=== PATIENT | female | born 1970 | race Hispanic/Latino ===

== ENCOUNTER 2016-12-18 08:04 | Emergency (ER) | payer MEDICARE, MEDICAID ==
[~2016-12-18] VITALS: Ht 144.8 cm; Wt 71.0 kg
[~2016-12-18 08:04] MED LIST: AMLODIPINE BESY10 MG; AMLODIPINE10 MG PO; AMLODIPINE5 MG PO; ASPIRIN PO; ASPIRIN81 MG PO; ATIVAN0.5 MG PO; CIPROFLOXACIN250 MG OR; DAILY MULT1 OR; DIALYVIT2 PO; FOSRENOL500 MG PO; GOLYTELY4000 ML OR; HYDRALAZINE25 MG PO; KEFLEX500 MG PO; KIONEX PO; LABETALOL100 MG PO; LABETALOL200 MG PO; LISINOPRIL20 MG OR; LISINOPRIL20 MG PO; LORTAB 5/3255 MG PO; PENICILLN VK250 MG OR; PHOSLO667 M1 PO; RENAGEL800 MG OR; RENVELA800 MG PO; SENSIPAR30 MG OR; SENSIPAR30 MG PO; TEMAZEPAM15 MG PO; TRAMADOL HCL50 MG OR; ULTRAM50 MG OR; VITAMIN D2400 UNIT PO; VITAMIN D31000 UNI1 PO; ZITHROMAX250 MG PO; ZOLPIDEM5 MG PO
[2016-12-18] MEDS ORDERED: LABETALOL200 MG PO (08:23)
[2016-12-18] MEDS ORDERED: LISINOPRIL20 MG PO (08:24)
[2016-12-18 08:32] LABS: HEMATOCRIT 35.3 % (37.0-47.0); HEMOGLOBIN 11.4 g/dl (12.0-16.0); IMMATURE GRANULOCYTES 0.4 % (0.0-1.0); MEAN CELL VOLUME 94.9 fL CALC (80.0-100.0); MEAN CORPUSCULAR HGB 30.6 pG CALC (26.0-32.0); MEAN CORPUSCULAR HGB CONC 32.3 g/L CALC (32.0-36.0); NEUT# 3.28 thou/uL (2.00-7.15); RED BLOOD COUNT 3.72 mill/uL (4.20-5.60); RED CELL DISTRI WIDTH 12.7 % (11.5-15.5)
[2016-12-18 08:42] LABS: ALBUMIN 4.5 g/dL (3.2-5.0); ALKALINE PHOSPHATASE 312 u/l (38-126); ANION GAP 20 (6-22 (CALC)); BILIRUBIN, TOTAL 0.7 mg/dL (0.0-1.4); BUN 54 mg/dL (7-17); CALCIUM 7.9 mg/dL (8.4-10.2); CARBON DIOXIDE 33 mmol/l (22-30); CHLORIDE 97 mmol/l (95-108); GFR 9 ML/MIN (>=60 (CALC)); GFR FOR AFR.AMER. 11 ML/MIN (>=60 (CALC)); GLUCOSE 82 mg/dL (65-105); POTASSIUM 3.7 mmol/l (3.5-5.1); SGOT/AST 48 u/l (14-36); SGPT/ALT 38 u/l (9-52); SODIUM 146 mmol/l (137-146); TOTAL PROTEIN 7.5 g/dL (6.3-8.2)
[2016-12-18 08:47] LABS: BUN/CREATININE RATIO 10 (12-20 (CALC))
[2016-12-18 08:54] LABS: MYOGLOBIN 363 ng/mL (0 - 62)
[2016-12-18 09:01] LABS: CREATININE 5.2 mg/dL (0.5-1.0)
[2016-12-18 09:39] VITALS: BP 137/73
== END 2016-12-18 09:56 | disposition left against medical advice (07) ==
LOC: ED 08:04
PROVIDERS: Emergency Medicine
DX: R07.9 Chest pain, unspecified (principal); Z91.19 Patient's noncompliance with other medical treatment and regimen; I12.0 Hypertensive chronic kidney disease with stage 5 chronic kidney disease or end stage renal disease; N18.6 End stage renal disease; Z99.2 Dependence on renal dialysis; R94.31 Abnormal electrocardiogram [ECG] [EKG]

== ENCOUNTER 2017-08-26 11:12 | Day surgery (SDC) | payer MEDICARE, MEDICAID ==
[~2017-08-26] VITALS: Ht 144.8 cm; Wt 73.5 kg
[2017-08-26] MEDS ORDERED: AMLODIPINE (11:36)
[2017-08-26 12:12] LABS: HEMATOCRIT 27.9 % (37.0-47.0); HEMOGLOBIN 8.6 g/dl (12.0-16.0); IMMATURE GRANULOCYTES 0.4 % (0.0-1.0); MEAN CELL VOLUME 93.3 fL CALC (80.0-100.0); MEAN CORPUSCULAR HGB 28.8 pG CALC (26.0-32.0); MEAN CORPUSCULAR HGB CONC 30.8 g/L CALC (32.0-36.0); NEUT# 4.16 thou/uL (2.00-7.15); RED BLOOD COUNT 2.99 mill/uL (4.20-5.60); RED CELL DISTRI WIDTH 15.7 % (11.5-15.5)
[2017-08-26 12:36] LABS: CREATININE 6.2 mg/dL (0.5-1.0); POTASSIUM 5.9 mmol/l (3.5-5.1)
[2017-08-26 16:16] VITALS: BP 165/91
== END 2017-08-26 15:35 | disposition home or self-care (01) ==
LOC: ENDO 11:12 → ORM 11:12
PROVIDERS: ATTEND Urology
PROC: 0TBB8ZX Excision of Bladder, Via Natural or Artificial Opening Endoscopic, Diagnostic (ICD-10-PCS; principal; 2017-08-26)
PROC: 0T5B8ZZ Destruction of Bladder, Via Natural or Artificial Opening Endoscopic (ICD-10-PCS; 2017-08-26)
DX: N30.91 Cystitis, unspecified with hematuria (principal); N18.6 End stage renal disease; Z99.2 Dependence on renal dialysis
CPT/HCPCS: J1100; J1956

== ENCOUNTER 2017-12-24 23:53 | Emergency (ER) | payer MEDICARE, MEDICAID ==
[~2017-12-24] VITALS: Ht 144.8 cm; Wt 73.0 kg
[~2017-12-24 23:53] MED LIST changes: +AMLODIPINE PO
[2017-12-25] MEDS ORDERED: SENSIPAR30 MG PO (00:19)
[2017-12-25] MEDS ORDERED: LISINOPRIL20 MG PO (00:20)
[2017-12-25] MEDS ORDERED: ATORVASTATIN CA10 MG PO (00:20)
[2017-12-25] MEDS ORDERED: METOPROL TAR25 M1 PO (00:21)
[2017-12-25] MEDS ORDERED: VITAMIN D5000 UNIT PO (00:22)
[2017-12-25] MEDS ORDERED: KAYEXALATE15 GM/60 M PO (00:24)
[2017-12-25 00:49] VITALS: BP 168/82
== END 2017-12-25 01:19 | disposition home or self-care (01) ==
LOC: ED 23:53
DX: T82.838A Hemorrhage due to vascular prosthetic devices, implants and grafts, initial encounter (principal); I13.11 Hypertensive heart and chronic kidney disease without heart failure, with stage 5 chronic kidney disease, or end stage renal disease; N18.6 End stage renal disease; Z99.2 Dependence on renal dialysis; Y83.2 Surgical operation with anastomosis, bypass or graft as the cause of abnormal reaction of the patient, or of later complication, without mention of misadventure at the time of the procedure

== ENCOUNTER 2018-05-01 11:28 | Emergency (ER) | payer MEDICARE, MEDICAID ==
[~2018-05-01] VITALS: Ht 144.8 cm; Wt 79.0 kg
[~2018-05-01 11:28] MED LIST changes: +ATORVASTATIN CA10 MG PO; +KAYEXALATE15 GM/60 M PO; +METOPROL TAR25 M1 PO; +VITAMIN D5000 UNIT PO
[2018-05-01 12:43] VITALS: BP 200/103
== END 2018-05-01 12:43 ==
LOC: ED 11:28
DX: R58 Hemorrhage, not elsewhere classified (principal); I12.0 Hypertensive chronic kidney disease with stage 5 chronic kidney disease or end stage renal disease; N18.6 End stage renal disease; Z99.2 Dependence on renal dialysis; Y92.538 Other ambulatory health services establishments as the place of occurrence of the external cause

== ENCOUNTER 2018-06-07 19:46 | Emergency (ER) | payer MEDICARE, MEDICAID ==
[~2018-06-07] VITALS: Ht 144.8 cm; Wt 77.0 kg
[2018-06-07 22:00] VITALS: BP 153/79
== END 2018-06-07 22:00 | disposition home or self-care (01) ==
LOC: ED 19:46
PROC: 0HQEXZZ Repair Left Lower Arm Skin, External Approach (ICD-10-PCS; principal; 2018-06-07)
DX: T82.838A Hemorrhage due to vascular prosthetic devices, implants and grafts, initial encounter (principal); I12.0 Hypertensive chronic kidney disease with stage 5 chronic kidney disease or end stage renal disease; N18.6 End stage renal disease; Y83.8 Other surgical procedures as the cause of abnormal reaction of the patient, or of later complication, without mention of misadventure at the time of the procedure; Z99.2 Dependence on renal dialysis

== ENCOUNTER 2018-12-28 12:35 | Emergency (ER) | payer MEDICARE, MEDICAID ==
[~2018-12-28] VITALS: Ht 144.8 cm; Wt 73.0 kg
[2018-12-28] MEDS ORDERED: LABETALOL200 MG PO (14:52)
[2018-12-28 15:20] VITALS: BP 161/97
[2018-12-28] MEDS ORDERED: TRAMADOL HYDROC50 MG PO (18:24)
== END 2018-12-28 15:20 | disposition home or self-care (01) ==
LOC: ED 12:35
DX: S09.90XA Unspecified injury of head, initial encounter (principal); M25.512 Pain in left shoulder; W07.XXXA Fall from chair, initial encounter; Y92.009 Unspecified place in unspecified non-institutional (private) residence as the place of occurrence of the external cause; I12.0 Hypertensive chronic kidney disease with stage 5 chronic kidney disease or end stage renal disease; N18.6 End stage renal disease; Z99.2 Dependence on renal dialysis

== ENCOUNTER 2019-01-08 10:27 | Emergency (ER) | payer MEDICARE, MEDICAID ==
[~2019-01-08] VITALS: Ht 144.8 cm; Wt 59.1 kg
[~2019-01-08 10:27] MED LIST changes: +TRAMADOL HYDROC50 MG PO
[2019-01-08] MEDS ORDERED: ALPRAZOLAM0.5 M2 PO (11:05)
[2019-01-08] MEDS ORDERED: AMLODIPINE5 MG PO (11:06)
[2019-01-08] MEDS ORDERED: ADULT ASPIRIN R81 MG PO (11:06)
[2019-01-08] MEDS ORDERED: VITAMIN D2 PO (11:07)
[2019-01-08] MEDS ORDERED: CELEXA20 MG PO (11:08)
[2019-01-08] MEDS ORDERED: VITAMIN D35000 UNIT PO (11:09)
[2019-01-08 11:10] LABS: IMMATURE GRANULOCYTES 0.2 % (0.0-5.0); MEAN CELL VOLUME 93.7 fL CALC (80.0-100.0); MEAN CORPUSCULAR HGB 30.1 pG CALC (26.0-32.0); MEAN CORPUSCULAR HGB CONC 32.1 g/L CALC (32.0-36.0); NEUT# 3.87 thou/uL (2.00-7.15); RED BLOOD COUNT 4.15 mill/uL (4.20-5.60); RED CELL DISTRI WIDTH 13.3 % (11.5-15.5)
[2019-01-08] MEDS ORDERED: RESTORIL15 MG PO (11:10)
[2019-01-08] MEDS ORDERED: MILK OF MAG30 ML/UDC PO (11:10)
[2019-01-08 11:11] LABS: HEMATOCRIT 38.9 % (37.0-47.0); HEMOGLOBIN 12.5 g/dl (12.0-16.0)
[2019-01-08] MEDS ORDERED: RENAGEL800 MG PO (11:11)
[2019-01-08] MEDS ORDERED: ULTRAM50 M1 PO (11:13)
[2019-01-08 11:36] LABS: CREATININE 2.6 mg/dL (0.5-1.0); POTASSIUM 4.2 mmol/l (3.5-5.1)
[2019-01-08 12:54] VITALS: BP 131/75
== END 2019-01-08 12:56 | disposition home or self-care (01) ==
LOC: ED 10:27
PROVIDERS: Family Medicine
DX: S00.03XA Contusion of scalp, initial encounter (principal); S70.01XA Contusion of right hip, initial encounter; M79.602 Pain in left arm; M79.601 Pain in right arm; R25.3 Fasciculation; I12.0 Hypertensive chronic kidney disease with stage 5 chronic kidney disease or end stage renal disease; N18.6 End stage renal disease; W07.XXXA Fall from chair, initial encounter; Y93.89 Activity, other specified; Y92.538 Other ambulatory health services establishments as the place of occurrence of the external cause; Z99.2 Dependence on renal dialysis; Z91.81 History of falling

== ENCOUNTER 2019-01-11 10:20 | Emergency (ER) | payer MEDICARE, MEDICAID ==
[~2019-01-11] VITALS: Ht 144.8 cm; Wt 72.7 kg
[~2019-01-11 10:20] MED LIST changes: +ADULT ASPIRIN R81 MG PO; +ALPRAZOLAM0.5 M2 PO; +CELEXA20 MG PO; +MILK OF MAG30 ML/UDC PO; +RENAGEL800 MG PO; +RESTORIL15 MG PO; +ULTRAM50 M1 PO; +VITAMIN D2 PO; +VITAMIN D35000 UNIT PO
[2019-01-11 11:45] LABS: HEMATOCRIT 37.1 % (37.0-47.0); HEMOGLOBIN 11.9 g/dl (12.0-16.0); IMMATURE GRANULOCYTES 0.4 % (0.0-5.0); MEAN CELL VOLUME 94.9 fL CALC (80.0-100.0); MEAN CORPUSCULAR HGB 30.4 pG CALC (26.0-32.0); MEAN CORPUSCULAR HGB CONC 32.1 g/L CALC (32.0-36.0); NEUT# 3.74 thou/uL (2.00-7.15); RED BLOOD COUNT 3.91 mill/uL (4.20-5.60); RED CELL DISTRI WIDTH 13.2 % (11.5-15.5)
[2019-01-11] MEDS ORDERED: ZOFRAN ODT4 MG PO (11:55)
[2019-01-11 12:08] LABS: CREATININE 3.4 mg/dL (0.5-1.0); POTASSIUM 4.2 mmol/l (3.5-5.1)
[2019-01-11 12:53] VITALS: BP 117/70
== END 2019-01-11 13:00 | disposition home or self-care (01) ==
LOC: ED 10:20
PROVIDERS: Family Medicine
DX: R56.9 Unspecified convulsions (principal); I12.0 Hypertensive chronic kidney disease with stage 5 chronic kidney disease or end stage renal disease; N18.6 End stage renal disease; Z99.2 Dependence on renal dialysis

== ENCOUNTER 2019-01-27 10:09 | Emergency (ER) | payer MEDICARE, MEDICAID ==
[~2019-01-27] VITALS: Ht 144.8 cm; Wt 64.0 kg
[~2019-01-27 10:09] MED LIST changes: +ZOFRAN ODT4 MG PO
[2019-01-27 10:36] LABS: IMMATURE GRANULOCYTES 0.5 % (0.0-5.0); MEAN CELL VOLUME 95.4 fL CALC (80.0-100.0); MEAN CORPUSCULAR HGB 30.2 pG CALC (26.0-32.0); MEAN CORPUSCULAR HGB CONC 31.7 g/L CALC (32.0-36.0); NEUT# 2.54 thou/uL (2.00-7.15); RED BLOOD COUNT 3.24 mill/uL (4.20-5.60); RED CELL DISTRI WIDTH 14.4 % (11.5-15.5)
[2019-01-27 10:37] LABS: HEMATOCRIT 30.9 % (37.0-47.0); HEMOGLOBIN 9.8 g/dl (12.0-16.0)
[2019-01-27 10:59] LABS: CREATININE 3.2 mg/dL (0.5-1.0); POTASSIUM 4.2 mmol/l (3.5-5.1)
[2019-01-27] MEDS ORDERED: NITROGLYCERIN0.4 MG SL (11:15)
[2019-01-27 12:45] VITALS: BP 177/96
== END 2019-01-27 12:45 ==
LOC: ED 10:09
PROVIDERS: Family Medicine
DX: R56.9 Unspecified convulsions (principal); I12.0 Hypertensive chronic kidney disease with stage 5 chronic kidney disease or end stage renal disease; N18.6 End stage renal disease; S01.552A Open bite of oral cavity, initial encounter; X58.XXXA Exposure to other specified factors, initial encounter; Z99.2 Dependence on renal dialysis
CPT/HCPCS: J1953

== ENCOUNTER 2019-02-10 04:27 | Emergency (ER) | payer MEDICARE, MEDICAID ==
[~2019-02-10] VITALS: Ht 144.8 cm; Wt 65.0 kg
[~2019-02-10 04:27] MED LIST changes: +NITROGLYCERIN0.4 MG SL
[2019-02-10] MEDS ORDERED: LEVETIRACETAM500 MG PO (04:43)
[2019-02-10 05:10] LABS: HEMATOCRIT 31.8 % (37.0-47.0); IMMATURE GRANULOCYTES 0.3 % (0.0-5.0); MEAN CELL VOLUME 96.7 fL CALC (80.0-100.0); MEAN CORPUSCULAR HGB 30.4 pG CALC (26.0-32.0); MEAN CORPUSCULAR HGB CONC 31.4 g/L CALC (32.0-36.0); NEUT# 2.34 thou/uL (2.00-7.15); RED BLOOD COUNT 3.29 mill/uL (4.20-5.60); RED CELL DISTRI WIDTH 14.5 % (11.5-15.5)
[2019-02-10 05:22] LABS: BILIRUBIN, TOTAL 0.7 mg/dL (0.0-1.4); TOTAL PROTEIN 6.6 g/dL (6.3-8.2)
[2019-02-10 05:34] LABS: POTASSIUM 5.2 mmol/l (3.5-5.1)
[2019-02-10 05:35] LABS: CREATININE 6.8 mg/dL (0.5-1.0)
[2019-02-10 09:30] VITALS: BP 138/84
== END 2019-02-10 09:30 ==
LOC: ED 04:27
PROVIDERS: Emergency Medicine
DX: K85.90 Acute pancreatitis without necrosis or infection, unspecified (principal); I12.0 Hypertensive chronic kidney disease with stage 5 chronic kidney disease or end stage renal disease; N18.6 End stage renal disease; Z99.2 Dependence on renal dialysis

== ENCOUNTER 2019-03-19 11:52 | Emergency (ER) | payer MEDICARE, MEDICAID ==
[~2019-03-19] VITALS: Ht 144.8 cm; Wt 69.0 kg
[~2019-03-19 11:52] MED LIST changes: +LEVETIRACETAM500 MG PO
[2019-03-19] MEDS ORDERED: PERCOCET 5/321 COMBO PO (14:34)
[2019-03-19 15:20] VITALS: BP 200/110
== END 2019-03-19 15:20 | disposition home or self-care (01) ==
LOC: ED 11:52
PROC: 2W38X1Z Immobilization of Right Upper Extremity using Splint (ICD-10-PCS; principal; 2019-03-19)
DX: S42.291A Other displaced fracture of upper end of right humerus, initial encounter for closed fracture (principal); S80.212A Abrasion, left knee, initial encounter; I10 Essential (primary) hypertension; G40.909 Epilepsy, unspecified, not intractable, without status epilepticus; W01.0XXA Fall on same level from slipping, tripping and stumbling without subsequent striking against object, initial encounter

== ENCOUNTER 2019-05-10 11:22 | Emergency (ER) | payer MEDICARE, MEDICAID ==
[~2019-05-10] VITALS: Ht 144.8 cm; Wt 60.0 kg
[~2019-05-10 11:22] MED LIST changes: +PERCOCET 5/321 COMBO PO
[2019-05-10 12:35] VITALS: BP 131/87
== END 2019-05-10 12:35 | disposition home or self-care (01) ==
LOC: ED 11:22
DX: Z71.1 Person with feared health complaint in whom no diagnosis is made (principal); I12.0 Hypertensive chronic kidney disease with stage 5 chronic kidney disease or end stage renal disease; N18.6 End stage renal disease; R56.9 Unspecified convulsions

== ENCOUNTER 2019-10-13 | Emergency (ER) | payer MEDICARE, MEDICAID | END 2019-10-13 12:51 | disposition E | PROC: 5A12012 Performance of Cardiac Output, Single, Manual (ICD-10-PCS; principal; 2019-10-13) | DX: I46.9 Cardiac arrest, cause unspecified (principal); I12.0 Hypertensive chronic kidney disease with stage 5 chronic kidney disease or end stage renal disease; E11.22 Type 2 diabetes mellitus with diabetic chronic kidney disease; N18.6 End stage renal disease; G40.909 Epilepsy, unspecified, not intractable, without status epilepticus; Z99.2 Dependence on renal dialysis ==